=== PATIENT | female | born 1950 | race Caucasian/White ===

== ENCOUNTER 2025-03-23 14:07 | Emergency (ER) | payer OTHER, SELFPAY ==
--- NOTE | ~2025-03-23 | CT_ITS ---
EXAMINATION: CT FACIAL BONES WITHOUT CONTRAST CLINICAL INFORMATION: Injury. COMPARISON: None available. TECHNIQUE: Contiguous axial images through the maxillofacial bones using 3 mm collimation with bone and soft tissue algorithm. Sagittal and coronal reformatted images acquired. DLP: 330.[address] examination was performed using dose optimization techniques as appropriate, variously including the following: *Automated exposure control *Adjustment of mA and/or kV according to patient size (this includes techniques or standardized protocols for targeted exams where dose is matched to indication/reason for exam; i.e. extremities or head) *Use of iterative reconstruction technique FINDINGS: Cortical irregularity in the anterior nasal bones. There is a focal thinning/dehiscence the paranasal septum. The vomer is intact. The orbits are intact. No gross hematoma in the intraconal or the extraconal compartments of the orbits. The eyeballs are intact. Zygomatic arcs are intact. Maxilla and pterygoid plates are intact. Mandible is intact. Temporomandibular joints are intact. Poor pneumatization of the mastoid air cells. No air-fluid levels in the paranasal sinuses. Cervical spondylosis C4-5 and to a lesser extent C5-6. Degenerative changes in the periodontal C1 region. Poor dentition. Calcifications in the carotid bulbs and proximal ICAs.. CT/CT facial bones wo IV con IMPRESSION: Probable minimal Ultramark deformity nasal bones. Electronically signed by: Chente Arredondo MD 03/23/2025 03:03 PM EDT
--- NOTE | ~2025-03-23 | CT_ITS ---
EXAMINATION: CT HEAD WITHOUT CONTRAST CLINICAL INFORMATION: trauma COMPARISON: None available. TECHNIQUE: Contiguous axial imaging was performed from the skull base to vertex without intravenous administration of contrast. This CT examination was performed using dose optimization techniques as appropriate, variously including the following: *Automated exposure control *Adjustment of mA and/or kV according to patient size (this includes techniques or standardized protocols for targeted exams where dose is matched to indication/reason for exam; i.e. extremities or head) *Use of iterative reconstruction technique DLP: 663.78 mGy-cm FINDINGS: The bony calvarium is intact. The skull base is grossly intact. No acute intracranial hemorrhage, mass effect, midline shift, hydrocephalus or herniation. Oconnell-white matter differentiation is normal. Posterior cranial fossa contents demonstrate no acute intracranial hemorrhage. There is normal position of the cerebellar tonsils. Sellar/ sellar region demonstrated no gross masses. Mild prominence of the extra-axial CSF spaces along the frontal temporal convexities. No air-fluid levels in the included paranasal sinuses. For pneumatization of the mastoid cells. Tympanic cavities and mastoid antrum are aerated. CT/CT head/brain wo IV con IMPRESSION: No acute fracture, bony calvarium. No acute intracranial hemorrhage. Electronically signed by: Chente Arredondo MD 03/23/2025 02:57 PM EDT
[2025-03-23 14:12] VITALS: BP 188/92; PULSE 67; RESP 18; TEMP 36.4; O2SAT 96; BMI 33.6
--- NOTE | 2025-03-23 14:16 | ED.GENADULT ---
HPI - General Adult General Chief complaint: Fall Stated complaint: Facial Injury Fall 03/22/25 Time Seen by Provider: 03/23/25 15:01 Source: patient, RN notes reviewed and old records reviewed Mode of arrival: ambulatory Limitations: no limitations History of Present Illness ED Provider: [facility] narrative: Patient is a 74-year-old female presenting to the emergency department with complaint of swelling to nose and ecchymosis to periorbital area after a fall yesterday. States that she was playing with a ball with her grandson around noon when she lost her balance and fell face 1st onto the ground. She denies loss of consciousness. She is not anticoagulated but does take daily baby aspirin. Denies headache, vision changes, drainage or discharge from nose. Denies any loose teeth. Denies neck or back pain or any other complaints. complaint: Facial injury Onset (ago): day(s) Location: face Related Data Allergies Allergy/AdvReac Type Severity Reaction Status Date / Time No Known Allergies Allergy Verified 03/23/25 14:13 Review of Systems Review of Systems: as per hpi Yes all other systems are reviewed and are negative Constitutional: Constitutional: Reports as per HPI Physical Exam ED Vital Signs: Vital Signs - 24 hr 03/23/25 14:12 Temperature 97.5 F Pulse Rate 67 Respiratory Rate 18 Blood Pressure 188/92 H Pulse Oximetry 96 Oxygen Delivery Method Room Air BMI result Body Mass Index 33.6 Vital signs have been reviewed and appear to be correct. Blood pressure elevated. Heart rate normal. Respiratory rate normal. Temperature normal. Oxygen saturation normal. Const General: cooperative, healthy appearing and no acute distress Orientation/consciousness: oriented to person, oriented to place, oriented to time and patient oriented x3 Limitations: no limitations HENAL Head: Yes normocephalic, No Dewitt's sign and Yes periorbital ecchymosis Ears: hearing grossly normal bilaterally, external ears normal, TM's normal bilaterally and EAC's normal General nose exam: Normal nares present, Normal nasal mucous membranes and turbinates present, Normal septum present, No nasal discharge present and Abnormal external nose present nasal abrasion and nasal swelling; no nasal deviation Face and sinus: Yes face symmetric Mouth: Normal oral and palatal mucosa present, tongue normal, oropharynx normal, moist mucous membranes, lip abnormal upper swelling and other (abrasion), no trismus and No restricted motion Teeth and gingiva: dentition normal Throat: Yes uvula midline Eyes Pupils: Equal, round and reactive pupils present Neck Neck: Yes normal visual inspection and Yes supple Resp Effort & Inspection: normal respiratory effort and able to speak in complete sentences Auscultation: clear to auscultation bilaterally Cardio Rate: regular rate Rhythm: regular rhythm Heart sounds: S1 normal heart sound present and S2 normal heart sound present GI Palpation (GI): Soft to palpation and nontender Auscultation: normoactive bowel sounds General: Yes no CVA tenderness Back/Spine/Pelvis Back: no CVA tenderness Cervical Spine: normal cervical lordosis, cervical ROM normal, No pain with cervical ROM, No Cervical spine tenderness and No step off deformity Thoracic/Lumbar Spine: thoracic and lumbar spine normal to inspection, thoraco-lumbar ROM normal, No pain with thoraco-lumbar ROM, No thoracic spinal tenderness and No lumbar spinal tenderness Skin General skin exam: elasticity normal and turgor normal Neuro General: oriented to person, oriented to place, oriented to time, patient oriented x3, moves all extremities, no focal motor deficits and CN's II-XI intact bilaterally Cranial nerves: Yes Equal, round and reactive pupils present Cognition (Neuro): normal cognition Extrem General: Yes full ROM, Yes no pedal edema and Yes no calf tenderness Psych Mental Status: mental status grossly normal Affect: normal affect Thought process: Normal thought process present Course Course Course Narrative: RME, this is a rapid medical exam performed by Mak Hernandez please refer to primary provider for complete H&P- 74-year-old female presents for evaluation of the patient has swelling and pain. She was playing with a ball with her grandson yesterday when she fell forward and face balloon did remove around. There was no loss of consciousness. She has no weakness, dizziness lightheadedness. She has pain to the face below the eyes. she is on aspirin benign anticoagulated. She does have bilateral periorbital edema and ecchymosis. Plan for CT scan of the brain and facial bones. No neck pain or tenderness. Medical Decision Making Medical Decision Making MDM Narrative: Patient is a 74-year-old female presenting to the emergency department with complaint of swelling to nose and ecchymosis to periorbital area after a fall yesterday. On exam patient is awake, A+Ox3, VS WNL, afebrile, normal neurological exam without focal deficits, physical exam findings as above. Given reported symptoms and physical exam findings, initial differential includes but is not limited to facial contusion, facial bones fracture, ICH, skull fracture. CT head and facial bones notable for no evidence of ICH or acute fracture. My interpretation is in agreement with the radiologist's interpretation. Results discussed with patient and all questions answered. Advised patient to apply ice intermittently, can use Tylenol and ibuprofen as needed for discomfort. Strict return precautions discussed at bedside. Patient verbalized understanding of and agreement with plan. Differential Diagnosis Differential Diagnoses: The differential diagnosis associated with the presentation includes As per [facility] Admission/Observation Consideration of admission/observation: Escalation of care including admission/observation considered Patient would have been admitted to the hospital had their work up had any findings where hospital admission was appropriate and their clinical presentation warranted hospital admission. Independent Interpretation I performed an independent interpretation of an: CT Scan Interpretation: No acute fracture or ICH CT facial bones, head Radiology Impression Discussion of test interpretation with radiology: I have reviewed the radiologist's reading. Radiologist Impression: Typographic error under the impression which should read as follow: Probable minimal old traumatic deformity, nasal bones. CT/CT head/brain wo IV con IMPRESSION: No acute fracture, bony calvarium. No acute intracranial hemorrhage. External Record Review External record reviewed: Inpatient record, Office record and Outpatient record Discharge Plan Discharge Clinical Impression: Contusion of face Patient Disposition: Home, Self-Care Instructions: Contusion in Adults (ED), Nasal Contusion (ED), Facial Contusion (ED) Additional Instructions: You were evaluated in the emergency department today for injuries to her face after a fall. Your CT scans did not show evidence of any fractures of your face or bleeding in your brain. We recommend that you apply ice to your face for 10-15 minutes at a time several times daily, using caution not to apply ice directly to your skin. You can also use Tylenol or ibuprofen per package instructions as needed for discomfort. Return to the emergency department if you develop bleeding or other abnormal discharge/drainage from your nose, changes in vision, worsening pain, fever, confusion, severe headaches, dizziness or any other new or concerning symptoms. Interventions: ED Discharge Assessment Last Done: 03/23/25 15:38 Print Language: [place]
[2025-03-23 15:38] VITALS: BP 150/81; PULSE 54; RESP 16; TEMP 36.5; O2SAT 96
--- OUTSIDE RECORDS SUMMARY | 2025-03-23 15:40 | XMS_ITS ---
Author Organization [facility] Address [address] [place] [address] Care Team Providers Care Lawyer Probate Name Role Phone TOMER STALLWORTH M.D Primary Care Provider Anne Marie Radford Unavailable [phone] REASON FOR VISIT FAX RECORDS Encounters Encounter Location Date Provider Diagnosis [address] [address] [address] [place] [address] 02/03/2025 Anne Marie العراقي Plan Of Treatment No Information Progress Notes * Lito LÓPEZ TDOB: (74 yo F)Acc No.[id number]:02/03/2025 Patient:?Lito LÓPEZ :1950???Age:74 Y???Sex:Female Address:[address], [place] [address] * true * Date:? Generated for Printi ng/Fasdg/eTransmitting on:?03/23/2025 03:40 PM EDT
--- OUTSIDE RECORDS SUMMARY | 2025-03-23 15:40 | XMS_ITS | Continuity of Care Document ---
Author Organization [facility], [place], [facility] Address [address] [place] [id number] Phone Care Team Providers Care Staff Submarine Warfare Officer Name Role Phone Charlie CUELLO, Bairon Unavailable Unavailabl e Allergies, Adverse Reactions, Alerts Substance Reaction Status Criticality trimethoprim Active No Information sulfamethoxazole Active No Informat ion Medications Medication Instructions Dosage Effective Dates (start - stop) Status Comments Vascepa 1 gram capsule take 2 capsule by oral route 2 times every day with food swallowing whole. Do not chew, open, dissolve and/or crush. - Active ranolazine ER 500 mg tablet,extended release,12 hr take 1 tablet by oral route 2 times every day - Active carvedilol 3.125 mg tablet take 1 tablet by oral route 2 times every day with food - Active losartan 50 mg tablet take 1 tablet by o ral route every day - Active simvastatin 40 mg tablet take 1 tablet by oral route every day in the evening - Active clopidogrel 75 mg tablet take 1 tablet by oral route every day - Active isosorbide mononitrate ER 60 mg tablet,extended release 24 hr take 1 tablet by oral route every day in the morning - Active omeprazole 40 mg capsule,delayed release take 1 capsule by oral route every day before a meal - Active Procedures Procedure Date Vision NEW PT Exam REFRACTION Advance Directives Directive Yes / No Effective Date File Name No Information Encounters Encounter Description Practice Location Reason(s) For Visit Diagnoses Date Provider Providers Copied on Encounter [facility] [place], [facility], [address] [place] [address], [id number], [place] tel:[phone] [address] [address] vision exam (chief complaint) Encounter for examination of eyes and vision without abnormal findingsMyopia, bilateralPresbyopia Age-related nuclear cataract, bilateralBilateral vitreous detachment of eyesDry eye syndrome of bilateral lacrimal glands Charile Bustos. [address], [place], [id number] , [place]. tel:[phone] Referring Provider: Bairon Charlie CARMONA, [address] [place], [address] . tel:[phone] Family History Family Member Type Diagnosis Age At Onset Father Problem Cataracts Mother Problem Cataracts Payers Payer name Insurance type Covered democrat ID Isadora briseno(s) [facility] [id number] Social History Type Description Quantity Date Captured Comments Alcohol Use Details No Caffeine Use Details No Tobacco Use Status Current non-smoker Smoking Status Never smoker Non-Smoking Tobacco Use Details : No Details Available : No Details Available Sex Female Chief Complaint And Reason For Visit From encounter dated '07/23/2024 13:30'. vision exam (chief complaint). Description: Pt is a 73 year old female here for a vision exam, pt states that when she looks up she is seeing double OU, also states that her vision is becoming very blurry states that she can not see the TV, also states that she feels something in OS, states that itirritates her. states that she floaters OU. Reason For Referral Reason For Referral No Information Plan Of Treatment Date Type Action Status Patient Education omeprazole 40 mg capsul e,delayed release completed History Of Present Illness Encounter Date Complaint History Of Prese nt Illness vision exam Pt is a 73 year old female here for a vision exam, pt states that when she looks up she is seeing double OU, also states that her vision is becoming very blurry states that she can not see the TV, also states that she feels something in OS, states that it irritates her. states that she floaters OU. Functional Status Date Functional Assessmen t No Information Instructions Date Instruction Additional Infor mation Impression/Plan Related to Encou nter for examination of eyes and vision without abnormal findings Impression/Plan Related to Myopi a, bilateral Impression/Plan Related to Presb yopia Impression/Plan Related to Age-r elated nuclear cataract, bilateral Impression/Plan Related to Bilat eral vitreous detachment of eyes Impression/Plan Related to Dry e ye syndrome of bilateral lacrimal glands Assessments Type Assessment Date assessment Encounter for examin ation of eyes and vision without abnormal findings assessment Myopia, bilateral assessment Presbyopia assessment Age-related nuclear cataract, bi lateral assessment Bilateral vitreous detachment of eyes assessment Dry eye syndrome of bilateral la crimal glands impression Encounter for examin ation of eyes and vision without abnormal findings: Z01.00 impression Myopia, bilateral: H52.13 impression Presbyopia: H52.4 impression Age-related nuclear cataract, bi lateral: H25.13 impression Bilateral vitreous detachment of eyes: H43.813 impression Dry eye syndrome of bilateral la crimal glands: H04.123 Patient Care Teams Name Effective Dates (start - stop) Status Members No Information
--- OUTSIDE RECORDS SUMMARY | 2025-03-23 15:40 | XMS_ITS | Patient Health Record ---
Author Organization [facility] Address [address] [address] Care Team Providers Care Charger Name Role Phone TOMER STALLWORTH M.D Primary Care Provider Anne Marie Radford Unavailable [phone] Allergies Allergen (clinical drug ingredient) Drug/Non Drug Allergy documented on EMR Reaction Allergy Type Onset Date Status sulfamethoxazole / trimethoprim Bactrim Unknown Drug Allergy Active methylprednisolone Depo-Medrol Unknown Drug Allergy Active Reason For Referral No Information Medications Medication SIG (Take, Route, Frequency, Duration) Notes Start Date End Date Status Aspirin Adult Low Dose 81 MG 1 tablet Orally Once a day Active ZyrTEC Allergy 10 MG 1 tablet Orally Once a day for 30 day(s) Active Omeprazole 40 MG 1 capsule Orally Twice a day Active Ibuprofen 200 MG 2 tablet with food or milk as needed Orally Twice a day Active Multi Vitamin Daily - 1 tablet Orally Once a day for 30 day(s) *Reorder from [facility] for eRx and Interaction Alerts* Active Simvastatin 40 MG 1 tablet in the evening Orally Once a day Active Metoprolol Succinate ER 25 MG 1 tablet Orally Once a day for 30 day(s) Active oxyBUTYnin Chloride 5 MG 1 tablet Orally Once a day Active Losartan Potassium-HCTZ 100-12.5 MG 1 tablet Orally Once a day for 30 day(s) Active Problems Problem Type SNOMED Code ICD Code Onset Dates Problem Status W/U Status Risk Notes Problem 492336459 Overweight (E66.3) Active confirmed Problem 48783085 Abdominal crampi ng (R10.9) Active confirmed Problem 663895697 Obesity (E66.9) Active confirmed Problem 88640979 Esophageal dysph agia (R13.14) Active confirmed Problem 07908998 Diarrhea of infectious origin (A09) Active confirmed Problem 85346836 Chest pain (R07.9) Active confirmed Problem 713877777 Weight loss (R63.4) Active confirmed Problem 109378203 Periumbilical abdominal pain (R10.33) Active confirmed Problem 1220426 Gastritis (K29.70) Active confirmed Problem 833247541 Gallstones (K80.20) Active confirmed Problem 362861670 Abnormal PET sca n of colon (R94.8) Active confirmed ascending colon Problem 96371790 Pharyngoesophage al dysphagia (R13.14) Active confirmed Problem 40246476 Rectal bleeding (K62.5) Active confirmed Problem 89819877 Change in bowel habits (R19.4) Active confirmed this may be related to lactose as she noteices liose stools with mild products Problem 264378256 Family history o f colon cancer (Z80.0) Active confirmed Problem 294086833 History of colon ic polyps (Z86.010) Active confirmed Problem 001788625 Encounter for medication review (Z79.899) Active confirmed Problem 436409415 Colitis (K52.9) Active confirmed clinically I suspect infectious, inflammatory or ischemic colitis Problem 0982822 Non-smoker (Z78.9) Active confirmed Problem 893510385 GERD (gastroesophageal reflux disease) (K21.9) Active confirmed Problem 923463890 Over weight (E66.3) Active confirmed Encounters Encounter Location Date Provider Diagnosis [facility] [address] [place] [address] 02/03/2025 Anne Marie العراقي Plan Of Treatment Pending Test Test Name Order Date Stool Culture 11/20/2016 C difficile Toxins A+B, EIA 11/20/2016 CMP 11/20/2016 CRP 11/20/2016 Pathology 02/27/2022 ESR 11/20/2016 cbc 11/20/2016 Barium Swallow 01/26/2022 Ultrasound : Abdomen, Right Upper Quadra nt (limited) 01/26/2022 CT ABD AND PELVIS W CONTRAST 11/16/2016 COLON/BX 02/10/2020 COLON/BX 10/21/2012 EGD 01/26/2022 EGD 08/03/2016 EGD 08/12/2013 SMALL BOWEL ENDOSCOPY/BIOPSY 08/12/2013 COLONOSCOPY 11/20/2016 Insurance Providers Payer Name Payer Address Payer Phone Subscriber Number Group Number Insured Name Patient Relationship to Insured Coverage Start Date Coverage End Date DO [place] [address] [id number] Lito Marrufo Self - patient is the insured Medical (General) History Medical History History ICD Code cholesterol problems diabetes - pre hemorrhoids reflux hypertension mitral valve prolapse colonic polyps thyroid problems heart attack gallstones Surgical History Surgery Date(Month/Year) egd and colonoscopy 09/2005 colonoscopy and polypectomy 11/20/2012 EGD 09/09/2013 carpal tunnel release back surgery 1998 tubal ligation 1981 appendectomy 196 EGD 02/27/22 heart catheterization 2020 colonoscopy 04/19/20 lung biopsy (benign) 2018 colonoscopy 12/07/16 EGD 09/15/2016 hysterectomy 1994 heart stents 2013 heart catheterization 2013 Hospitalization History Reason Date(Month/Year) allergic reaction - [facility] 03/2016 chest pain [facility] 12/2021
== END 2025-03-23 15:54 | disposition home or self-care (01) ==
LOC: HO.ED 15:38
PROVIDERS: Emergency Provider Emergency Medicine Emergency Medical Services
DX: S00.83XA Contusion of other part of head, initial encounter (principal); W01.198A Fall on same level from slipping, tripping and stumbling with subsequent striking against other object, initial encounter; Y93.79 Activity, other specified sports and athletics; Y92.017 Garden or yard in single-family (private) house as the place of occurrence of the external cause; Y99.9 Unspecified external cause status
CPT/HCPCS: 70450; 70486; 99282; 99284

== ENCOUNTER → 2025-03-23 14:16 | Outpatient (BNV) | payer SELFPAY | PROVIDERS: Emergency Provider Emergency Medicine Emergency Medical Services; Visit Provider Radiology Diagnostic Radiology | DX: S09.93XA Unspecified injury of face, initial encounter (principal); S09.90XA Unspecified injury of head, initial encounter | CPT/HCPCS: 70450; 70486 ==